=== PATIENT | female | born 1990 | race Hispanic/Latino ===

== ENCOUNTER 2018-08-28 09:23 | Emergency (ER) | payer BC, MEDICAID ==
[~2018-08-28 09:23] MED LIST: PREN-196 PO
== END 2018-08-28 11:17 | disposition home or self-care (01) ==
LOC: EDH 09:23
DX: O90.89 Other complications of the puerperium, not elsewhere classified (principal); R60.0 Localized edema
CPT/HCPCS: 93971

== ENCOUNTER 2019-10-04 10:56 | Emergency (ER) | payer BC, MEDICAID ==
[2019-10-04 11:34] LABS: BASOPHILS % (AUTO) 0.9 % (0.0-5.0); EOSINOPHILS % (AUTO) 0.4 % (0.0-8.0); HEMATOCRIT 36.4 % (36-48); LYMPHOCYTES % (AUTO) 27.7 % (21.0-51.0); MEAN CORPUSCULAR HEMOGLOBIN 26.2 pg (27.0-33.0); MEAN CORPUSCULAR HGB CONC 33.4 g/dL (32.0-36.0); MEAN CORPUSCULAR VOLUME 78.6 fL (79-99); MONOCYTES % (AUTO) 5.6 % (3.0-13.0); NEUTROPHILS % (AUTO) 65.4 % (40.0-77.0); PLATELET COUNT (AUTO) 340 K/uL (130-400); RED BLOOD CELL COUNT(AUTO) 4.63 MIL/uL (4.00-5.50); RED CELL DISTRIBUTION WIDTH 15.3 % (11.0-15.5); WHITE BLOOD COUNT (AUTO) 8.8 K/uL (4.8-10.8)
[2019-10-04 11:45] LABS: CREATININE 0.6 mg/dL (0.5-1.5); POTASSIUM 3.7 mmol/L (3.5-5.1)
[2019-10-04 11:47] LABS: INR 0.97 (0.85-1.15); PROTHROMBIN TIME 10.2 SEC (9.6-11.6)
[2019-10-04 12:11] LABS: ALBUMIN 3.2 g/dL (3.5-5.0); BILIRUBIN,TOTAL 0.4 mg/dL (0.2-1.0); TOTAL PROTEIN, SERUM 7.1 g/dL (6.0-8.3)
[2019-10-04 13:30] LABS: APPEARANCE,URINE Clear (CLEAR); BILIRUBIN,URINE Negative (NEGATIVE); COLOR,URINE Yellow (YELLOW); GLUCOSE, URINE (UA) Negative (NEGATIVE); KETONES,URINE Trace mg/dL (NEGATIVE); LEUKOCYTE ESTERASE ,URINE Negative (NEGATIVE); NITRATE,URINE Negative (NEGATIVE); OCCULT BLOOD,URINE Negative (NEGATIVE); PROTEIN,URINE Negative (NEGATIVE); UROBILINOGEN,URINE 0.2 mg/dL (0.2-1.0)
== END 2019-10-04 14:17 | disposition home or self-care (01) ==
LOC: EDH 10:56
DX: O20.0 Threatened abortion (principal); Z3A.08 8 weeks gestation of pregnancy
CPT/HCPCS: 36415; 76801; 80053; 81003; 84702; 85025; 85610; 85730; 86900; 86901

== ENCOUNTER 2020-05-10 10:42 | Inpatient (IN) | payer MEDICAID ==
[~2020-05-10] VITALS: Ht 154.9 cm; Wt 72.6 kg
[2020-05-10] MEDS ORDERED: LACTATED RINGERS 1000ML 1,000 ML IV PRN (12:08)
[2020-05-10] MEDS ORDERED: LACTATED RINGERS 500 ML 500 ML IV PRN (12:15)
[2020-05-10] MEDS ORDERED: EPHEDRINE SULFATE 50 MG/ML AMPULE IVP PRN (12:15)
[2020-05-10] MEDS ORDERED: BUTORPHANOL TARTRATE 2 MG/ML IVP PRN (12:15)
[2020-05-10] MEDS ORDERED: OXYTOCIN 10 USP UNITS/ML 20 UNIT in LACTATED RINGERS 1000ML 1,000 ML IV SCH (12:15)
[2020-05-10] MEDS ORDERED: NALOXONE HCL 0.4 MG/1 ML ML IV PRN (12:15)
[2020-05-10 12:27] LABS: HEMATOCRIT 27.2 % (36-48); MEAN CORPUSCULAR HEMOGLOBIN 19.2 pg (27.0-33.0); MEAN CORPUSCULAR HGB CONC 28.7 g/dL (32.0-36.0); NUCLEATED RED BLOOD CELLS 0.2 % (0.0-0.19); PLATELET COUNT (AUTO) 311 K/uL (130-400); RED BLOOD CELL COUNT(AUTO) 4.06 MIL/uL (4.00-5.50); RED CELL DISTRIBUTION WIDTH 19.7 % (11.0-15.5); WHITE BLOOD COUNT (AUTO) 9.4 K/uL (4.8-10.8)
[2020-05-10 12:29] LABS: APPEARANCE,URINE Clear (CLEAR); BILIRUBIN,URINE Negative (NEGATIVE); COLOR,URINE Dark Yellow (YELLOW); GLUCOSE, URINE (UA) Negative (NEGATIVE); KETONES,URINE Negative (NEGATIVE); LEUKOCYTE ESTERASE ,URINE Negative (NEGATIVE); NITRATE,URINE Negative (NEGATIVE); OCCULT BLOOD,URINE Negative (NEGATIVE); PH,URINE >=9.0 (5.0-8.0); PROTEIN,URINE Negative (NEGATIVE)
[2020-05-10 13:00] LABS: AMORPHOUS SEDIMENT,UR Few /LPF (None Seen); BACTERIA,URINE Few /HPF (None Seen); MUCUS,URINE Moderate LPF (None Seen); RBC,URINE None Seen /HPF (0-1); SQUAMOUS EPITHELIAL CELL,UR 0-2 /HPF (0-2); WBC,URINE 0-1 /HPF (0-1)
[2020-05-10] MEDS: MISOPROSTOL 100 MCG TABLET VG SCH ×2 (16:11→22:00)
[2020-05-10] MEDS ORDERED: LIDOCAINE HCL 1% 20 ML VIAL ONE (19:58)
[2020-05-10] MEDS ORDERED: OXYTOCIN-LR 20 UNITS/1000 ML 1,000 ML IV ONE (19:58)
[2020-05-10] MEDS ORDERED: OXYTOCIN-LR 20 UNITS/1000 ML 1,000 ML IV SCH (20:45)
[2020-05-10] MEDS ORDERED: LANOLIN 30GM OINTMENT TP PRN (20:45)
[2020-05-10] MEDS ORDERED: BENZOCAINE/LANOLIN/ALOE VERA 60 ML AEROSOL TP PRN (20:45)
[2020-05-10] MEDS ORDERED: ACETAMINOPHEN-CODEINE 300/30MG TAB PO PRN (20:45)
[2020-05-10] MEDS ORDERED: WITCH HAZEL 1 PAD TP PRN (20:45)
[2020-05-10] MEDS: IBUPROFEN 600 MG TABLET PO PRN (20:56)
[2020-05-10] MEDS ORDERED: DOCUSATE SODIUM 100 MG CAP PO SCH (21:00)
[2020-05-10 23:00] VITALS: BP 109/64
[2020-05-11 03:50] VITALS: BP 102/63
[2020-05-11] MEDS: IBUPROFEN 600 MG TABLET PO PRN (04:14)
[2020-05-11 07:50] VITALS: BP 111/80
--- NOTE | 2020-05-11 09:05 | NUR ---
verbal and written discharge instructions given, informed of the follow up appointment. no prescription given. informed to call the doctor for any future concerns . pt voiced understanding to all things discussed. Addendum: 05/11/20 at 0925 by MARIA CHICAS RN Amended: Links added.
[2020-05-11 09:12] LABS: HEPATITIS Bs ANTIGEN SCREEN P Negative (Negative)
--- NOTE | 2020-05-11 10:25 | NUR ---
pt is dismissed in stable condition, brought to private car via wheelchair. Addendum: 05/11/20 at 1045 by MARIA CHICAS RN Amended: Links added.
[2020-07-01] MEDS ORDERED: NORE1PAT7 TD (10:03)
== END 2020-05-11 10:25 | disposition home or self-care (01) | DRG 560 ==
LOC: PREOBSVTOIN 11:06 → LDH 11:07 → WSH 22:45
PROVIDERS: ADMIT Obstetrics & Gynecology; ATTEND Obstetrics & Gynecology
PROC: 10E0XZZ Delivery of Products of Conception, External Approach (ICD-10-PCS; principal; 2020-05-10)
PROC: 0HQ9XZZ Repair Perineum Skin, External Approach (ICD-10-PCS; 2020-05-10)
DX: O69.81X0 Labor and delivery complicated by cord around neck, without compression, not applicable or unspecified (principal); Z37.0 Single live birth; D64.9 Anemia, unspecified; Z20.828 Contact with and (suspected) exposure to other viral communicable diseases; O99.02 Anemia complicating childbirth; O70.0 First degree perineal laceration during delivery; Z3A.39 39 weeks gestation of pregnancy
CPT/HCPCS: 36415; 81001; 85027; 86592; 86850; 86900; 86901; 87340; G0378; J0595; J2590; J7120; U0003

== ENCOUNTER 2020-07-02 05:55 | Day surgery (SDC) | payer MEDICAID ==
[2020-06-25 10:29] LABS: BASOPHILS % (AUTO) 0.7 % (0.0-5.0); EOSINOPHILS % (AUTO) 1.1 % (0.0-8.0); HEMATOCRIT 36.5 % (36-48); MEAN CORPUSCULAR HEMOGLOBIN 20.8 pg (27.0-33.0); MEAN CORPUSCULAR HGB CONC 29.6 g/dL (32.0-36.0); MEAN CORPUSCULAR VOLUME 70.2 fL (79-99); MONOCYTES % (AUTO) 6.7 % (3.0-13.0); NEUTROPHILS % (AUTO) 57.3 % (40.0-77.0); PLATELET COUNT (AUTO) 368 K/uL (130-400); RED CELL DISTRIBUTION WIDTH 22.5 % (11.0-15.5); WHITE BLOOD COUNT (AUTO) 6.1 K/uL (4.8-10.8)
--- NOTE | 2020-07-01 09:10 | NUR ---
report called dr gabriel office and spoke to marcello robles. reported cbc. no new orders at this time
[2020-07-01 09:47] VITALS: BP 110/76
[2020-07-02] VITALS (16 sets, daily range): BP systolic 109–131; BP diastolic 61–85
[~2020-07-02] VITALS: Ht 158.8 cm; Wt 65.8 kg
[~2020-07-02 05:55] MED LIST changes: +CALDOLOR 800MG+NS 250ML 250 ML IV SCH; +CEFAZOLIN SODIUM 1 GM VIAL IVP SCH; +LACTATED RINGERS 1000ML 1,000 ML IV SCH; +NORE1PAT7 TD; -PREN-196 PO
[2020-07-02] MEDS ORDERED: CEFAZOLIN SODIUM 1 GM VIAL ONE (06:06)
[2020-07-02] MEDS ORDERED: CALDOLOR 800MG+NS 250ML 250 ML IV ONE (08:32)
[2020-07-02] MEDS ORDERED: PROPOFOL 10 MG/ML 20ML VIAL IV ONE (09:05)
[2020-07-02] MEDS ORDERED: ROCURONIUM 10MG/1ML SYR 10 MG/ML ML ONE (09:05)
[2020-07-02] MEDS ORDERED: LIDOCAINE PF 2% 5ML ABBOJECT ONE (09:05)
[2020-07-02] MEDS ORDERED: MIDAZOLAM HCL 1 MG/ML 2ML VIAL ONE (09:05)
[2020-07-02] MEDS ORDERED: FENTANYL CITRATE PF 50 MCG/1 ML 2ML VIAL ONE (09:06)
[2020-07-02] MEDS ORDERED: ONDANSETRON HCL 4 MG/2 ML VIAL ONE (09:07)
[2020-07-02] MEDS ORDERED: BUPIVACAINE/PF 0.25% 30ML VIAL IJ ONE ×2 (09:20→09:22)
[2020-07-02] MEDS ORDERED: DEXAMETHASONE SOD PHOSPHATE 10MG/ML 1ML VIAL ONE (09:59)
[2020-07-02] MEDS ORDERED: GLYCOPYRROLATE 1 MG/5 ML SYRINGE ONE (10:15)
[2020-07-02] MEDS ORDERED: NEOSTIGMINE 5MG/5ML SYR IV ONE (10:15)
== END 2020-07-02 12:12 | disposition home or self-care (01) ==
LOC: DAH 05:55
PROVIDERS: ATTEND Obstetrics & Gynecology
DX: Z30.2 Encounter for sterilization (principal); Z20.828 Contact with and (suspected) exposure to other viral communicable diseases
CPT/HCPCS: 36415 ×2; 58670; 84703; 85025; 86850 ×2; 86900 ×2; 86901 ×2; A4215; A4221; A4222; A4223; A4351; A4510; A4600; A4663; A6260; C1769 ×2; C9803; G0168; J0690; J1100; J1741; J2001; J2250; J2405; J2704; J2710; J3010; J3490 ×3; J7120 ×2; U0003